=== PATIENT | female | born 1940 | race Caucasian/White ===

== ENCOUNTER 2017-10-25 12:46 | Emergency (ER) | payer MEDICARE, OTHER ==
--- NOTE | 2017-10-25 13:54 | ER Document Report ---
ED Fall - General Chief Complaint: Fall Stated Complaint: FALL/HEAD PAIN Time Seen by Provider: 10/25/17 13:50 Notes: 68-year-old female who tripped and fell and hit her head. She denies loss of consciousness before or after the fall. States she felt a little bit dizzy right after the fall but that is gone. Denies any extremity numbness tingling or weakness denies chest pain or shortness of breath. States she remembers the entire fall. Planes of also aching lower back pain also she describes as moderate worse with movement mainly she is concerned about her head. Describes the head as aching. Rates as moderate to severe hurts worse when he touches it. Denies any blurred vision. Denies any weakness. TRAVEL OUTSIDE OF THE [place] IN LAST 30 DAYS: No - Related data Allergies/Adverse Reactions: azithromycin Allergy (Verified 10/25/17 12:51) Sulfa (Sulfonamide Antibiotics) Allergy (Verified 10/25/17 12:51) Past Medical History - Social History Smoking Status: Never Smoker Frequency of alcohol use: None Drug Abuse: None Family History: Reviewed & Not Pertinent Patient has suicidal ideation: No Patient has homicidal ideation: No - Past Medical History Cardiac Medical History: Reports: Hx Hypertension Endocrine Medical History: Reports: Hx Diabetes Mellitus Type 2 Renal/ Medical History: Denies: Hx Peritoneal Dialysis Past Surgical History: Reports: Hx Orthopedic Surgery - Left knee Review of Systems - Review of Systems Constitutional: denies: Chills, Diaphoresis, Fever, Weakness Cardiovascular: denies: Chest pain Respiratory: denies: Short of breath Neurological/Psychological: Headaches. denies: Confusion, Weakness, Gait changes, Paralysis, Lost consciousness, Speech impairment, Numbness -: Yes All other systems reviewed and negative Physical Exam - Vital signs Vitals: Temp Pulse Resp BP Pulse Ox 97.8 F 62 14 152/51 H 98 10/25/17 12:56 10/25/17 12:56 10/25/17 12:56 10/25/17 12:56 10/25/17 12:56 - Notes Notes: GENERAL_APPEARANCE: well_nourished, alert, cooperative, no_acute_distress, no_ obvious_discomfort. VITALS: reviewed, see vital signs table. HEAD: 3-4 cm hematoma on the occipital parietal area of the head no open wounds just abrasion EYES: PERRL, EOMI, conjunctiva_clear. NOSE: no_nasal_discharge. MOUTH: (-)decreased moisture. THROAT: no_tonsilar_inflammation, no_airway_obstruction. no_lymphadenopathy NECK: supple, no_neck_tenderness, (-)thyromegaly. BACK: L4-5 midline_back_tenderness. CHEST_WALL: no_chest_tenderness. LUNGS: no_wheezing, no_rales, no_rhonchi, (-)accessory muscle use, good air exchange bilateral. HEART: normal_rate, normal_rhythm, normal_S1, normal_S2, (-)S3, (-)S4, no_ murmur, no_rub. ABDOMEN: normal_BS, soft, no_abd_tenderness, (-)guarding, (-)rebound, no_ organomegaly, no_abd_masses. EXTREMITIES: good pulses in all_extremities, no_swelling\tenderness in the extremities, no_edema. SKIN: warm, dry, good_color, no_rash. MENTAL_STATUS: speech_clear, oriented_X_3, normal_affect, responds_ appropriately to questions. NEURO: Neg Motor or Sensory Deficits on exam, CN 2-12 intact, DTR 2+ symmetric x 4, No cerbellar signs Course - Re-evaluation Re-evalutation: 10/25/17 13:54 She presents after mechanical trip and fall head neck injury. We will scan her head and neck to assess for skull fractures hemorrhage or cervical spine fractures. X-ray of the back also she is having some pain is no neurologic deficits noted. Patient is very pleasant. 10/25/17 14:50 The patient does have a small intracranial hemorrhage likely parenchymal bruising. We will transfer the patient to the back for further disposition. Will get some generalized blood work chest for any kind of coagulopathy. - Vital Signs Vital signs: Temp Pulse Resp BP Pulse Ox 97.8 F 62 14 152/51 H 98 10/25/17 12:56 10/25/17 12:56 10/25/17 12:56 10/25/17 12:56 10/25/17 12:56 - Diagnostic Test Radiology reviewed: Image reviewed Radiology results interpreted by me: 10/25/17 14:[address] 10/25/17 13:50 IMPRESSION: Considerable motion artifact. No fracture identified. Head CT 10/25/17 13:50 IMPRESSION: Small parenchymal or epidural hemorrhage left frontal lobe. EVIDENCE OF ACUTE STROKE: NO. Lumbar Spine X-Ray 10/25/17 13:51 IMPRESSION: SPONDYLOSIS WITHOUT BONE LESION OR FRACTURE. Discharge - Discharge Referrals: JAIRO ROBERTS MD [Primary Care Provider] - Follow up as needed
--- NOTE | 2017-10-25 14:46 | RADIOLOGY REPORT (SQ) ---
EXAM DESCRIPTION: CT HEAD WITHOUT COMPLETED DATE/TIME: 10/25/2017 2:31 pm REASON FOR STUDY: Fall - head, necj, back injury COMPARISON: None. TECHNIQUE: Axial images acquired through the brain without intravenous contrast. Images reviewed wi th bone, brain and subdural windows. Images stored on PACS. All CT scanners at this facility use dose modulation, iterative reconstruction, and/or weight based d osing when appropriate to reduce radiation dose to as low as reasonably achievable (ALARA). [facility]: Dose Right [facility]: CareDose [facility]: Dose Right [facility]: Teradose 4D [facility]: AltheaDx RADIATION DOSE: CT Rad equipment meets quality standard of care and radiation dose reduction techniq ues were employed. CTDIvol: 53.2 mGy. DLP: 1017 mGy-cm. mGy. LIMITATIONS: None. FINDINGS: VENTRICLES: Prominent. CEREBRUM: Small curvilinear focus of high attenuation in the left frontal lobe cortex measuring just over 1 cm. No extra-axial fluid collection. No deep parenchymal hemorrhage. CEREBELLUM: No masses. No hemorrhage. No alteration of density. No evidence for acute infarction. EXTRAAXIAL SPACES: Mild age-related involutional change. No fluid collections. No masses. ORBITS AND GLOBE: No intra- or extraconal masses. Normal contour of globe without masses. CALVARIUM: No fracture. PARANASAL SINUSES: No fluid or mucosal thickening. SOFT TISSUES: No mass or hematoma. OTHER: No other significant finding. IMPRESSION: Small parenchymal or epidural hemorrhage left frontal lobe. EVIDENCE OF ACUTE STROKE: NO. COMMENT: Pertinent findings on the imaging study reported as a CRITICAL RESULT to SHERLY STEPHENSON MD at14:39 on 10/25/2017. Category of Critical Result: Intracranial hemorrhage. TECHNICAL DOCUMENTATION: JOB ID: [id number] Quality ID # [id number]: Final reports with documentation of one or more dose reduction techniques (e.g., Au tomated exposure control, adjustment of the mA and/or kV according to patient size, use of iterative reconstruction technique) 2010 [employer]- All Rights Reserved Reading location - IP/workstation name: [email or web address]
--- NOTE | 2017-10-25 14:48 | RADIOLOGY REPORT (SQ) ---
EXAM DESCRIPTION: CT CERVICAL SPINE WITHOUT COMPLETED DATE/TIME: 10/25/2017 2:31 pm REASON FOR STUDY: Fall - head, necj, back injury COMPARISON: None. TECHNIQUE: Axial images acquired through the cervical spine without intravenous contrast. Images re viewed with lung, soft tissue and bone windows. Reconstructed coronal and sagittal MPR images review ed. Images stored on PACS. All CT scanners at this facility use dose modulation, iterative reconstruction, and/or weight based d osing when appropriate to reduce radiation dose to as low as reasonably achievable (ALARA). [facility]: Dose Right [facility]: CareDose [facility]: Dose Right [facility]: Teradose 4D [facility]: ESKY RADIATION DOSE: CT Rad equipment meets quality standard of care and radiation dose reduction techniq ues were employed. CTDIvol: 20.0 mGy. DLP: 319 mGy-cm. mGy. LIMITATIONS: Patient motion. FINDINGS: ALIGNMENT: Mild malalignment C4-5. MINERALIZATION: Normal. VERTEBRAL BODIES: No fractures or dislocation. Pannus formation C2. DISCS: Multilevel disc space narrowing with osteophytes. FACETS, LATERAL MASSES, POSTERIOR ELEMENTS: Anatomic variant incomplete posterior arch of C1. HARDWARE: None in the spine. VISUALIZED RIBS: No fractures. LUNG APICES AND SOFT TISSUES: No significant or acute findings. OTHER: No other significant finding. IMPRESSION: Considerable motion artifact. No fracture identified. TECHNICAL DOCUMENTATION: JOB ID: [id number] Quality ID # [id number]: Final reports with documentation of one or more dose reduction techniques (e.g., Au tomated exposure control, adjustment of the mA and/or kV according to patient size, use of iterative reconstruction technique) 2010 [employer]- All Rights Reserved Reading location - IP/workstation name: [email or web address]
--- NOTE | 2017-10-25 14:49 | RADIOLOGY REPORT (SQ) ---
EXAM DESCRIPTION: L SPINE WHOLE COMPLETED DATE/TIME: 10/25/2017 2:23 pm REASON FOR STUDY: Fall - head, necj, back injury COMPARISON: None. NUMBER OF VIEWS: Five views including obliques. TECHNIQUE: AP, lateral, oblique, and sacral radiographic images acquired of the lumbar spine. LIMITATIONS: None. FINDINGS: MINERALIZATION: Osteopenia. SEGMENTATION: Normal. No transitional anatomy. ALIGNMENT: Mild sigmoid scoliosis. VERTEBRAE: Maintained height. No fracture or worrisome bone lesion. DISCS: Multilevel disc space narrowing with osteophytes. POSTERIOR ELEMENTS: Pedicles and facets are intact. No pars defect or posterior arch defects. Facet arthropathy is present. HARDWARE: None in the spine. PARASPINAL SOFT TISSUES: Normal. PELVIS: Intact as visualized. No fractures or worrisome bone lesions. SI joints intact. OTHER: No other significant finding. IMPRESSION: SPONDYLOSIS WITHOUT BONE LESION OR FRACTURE. TECHNICAL DOCUMENTATION: JOB ID: [id number] [employer]- All Rights Reserved Reading location - IP/workstation name: [email or web address]
[2017-10-25 15:47] LABS: ABSOLUTE EOSINOPHILS # (AUTO) 0.2 10^3/uL (0.0-0.6); ABSOLUTE LYMPHOCYTES (AUTO) 1.5 10^3/uL (0.5-4.7); ABSOLUTE MONOCYTES (AUTO) 0.9 10^3/uL (0.1-1.4); ABSOLUTE NEUT (AUTO) 8.7 10^3/uL (1.7-8.2); BASOPHILS % (AUTO) 0.3 % (0-2); EOSINOPHILS % (AUTO) 1.5 % (0-6); HEMATOCRIT 41.1 % (36.0-47.0); HEMOGLOBIN 13.1 g/dL (12.0-15.5); LYMPHOCYTES % (AUTO) 13.3 % (13-45); MEAN CORPUSCULAR HEMOGLOBIN 26.7 pg (27.0-33.4); MEAN CORPUSCULAR VOLUME 84 fl (80-97); MONOCYTES % (AUTO) 8.2 % (3-13); PLATELET COUNT 343 10^3/uL (150-450); RED BLOOD COUNT 4.92 10^6/uL (3.72-5.28); RED CELL DISTRIBUTION WIDTH 15.7 % (11.5-14.0); SEGMENTED NEUTROPHILS % (AUTO) 76.7 % (42-78); TOTAL CELLS COUNTED % (AUTO) 100 %; WHITE BLOOD COUNT 11.4 10^3/uL (4.0-10.5)
[2017-10-25 15:50] LABS: INTERNATIONAL RATION (INR) 0.95; PROTHROMBIN TIME 13.2 SEC (11.4-15.4)
--- NOTE | 2017-10-25 15:51 | ER Document Report ---
ED General - General Chief Complaint: Fall Stated Complaint: FALL/HEAD PAIN Time Seen by Provider: 10/25/17 13:50 Mode of Arrival: Medic Information source: Patient, Relative Notes: 76-year-old female with hypertension, hyperlipidemia, type 2 diabetes presents via EMS after a trip and fall from standing approximately 4 hours prior to arrival. Patient states that she had a trip and fall causing her to fall backwards striking the back of her head on a tile floor. Patient denies being on any blood thinning medications, loss of consciousness, preceding dizziness, chest pain or shortness of breath. She is currently complaining of a headache, nausea and dizziness, neck and back pain. TRAVEL OUTSIDE OF THE [place] IN LAST 30 DAYS: No - HPI Onset: Just prior to arrival Onset/Duration: Sudden Quality of pain: Achy, Throbbing Severity: Moderate Associated symptoms: Headache, Nausea. denies: Chest pain, Shortness of breath Exacerbated by: Denies Relieved by: Denies Similar symptoms previously: No Recently seen / treated by doctor: No - Related Data Allergies/Adverse Reactions: azithromycin Allergy (Verified 10/25/17 12:51) Sulfa (Sulfonamide Antibiotics) Allergy (Verified 10/25/17 12:51) Past Medical History - General Information source: Patient - Social History Smoking Status: Never Smoker Frequency of alcohol use: None Drug Abuse: None Lives with: Family Family History: Reviewed & Not Pertinent Patient has suicidal ideation: No Patient has homicidal ideation: No - Past Medical History Cardiac Medical History: Reports: Hx Hypertension Endocrine Medical History: Reports: Hx Diabetes Mellitus Type 2 Renal/ Medical History: Denies: Hx Peritoneal Dialysis Past Surgical History: Reports: Hx Orthopedic Surgery - Left knee Review of Systems - Review of Systems Notes: REVIEW OF SYSTEMS: CONSTITUTIONAL : Denies fever, chills, or sweats. Denies recent illness. Denies weight loss, recent hospitalizations. EENT: Denies visual changes, eye pain. Denies nasal or sinus congestion or discharge. Denies sore throat, oral lesions, difficulty swallowing. CARDIOVASCULAR: Denies chest pain. Denies palpitations. Denies lower extremity edema. RESPIRATORY: Denies cough, cold, or chest congestion. Denies shortness of breath, wheezing. GASTROINTESTINAL: Denies abdominal pain or distention. Denies nausea, vomiting , or diarrhea. Denies blood in vomitus, stools, or per rectum. Denies black, tarry stools. Denies constipation. GENITOURINARY: Denies difficulty urinating, painful urination, frequency, blood in urine, or vaginal discharge. MUSCULOSKELETAL: Denies joint pain or swelling. SKIN: Denies rash, lesions or sores. HEMATOLOGIC : Denies easy bruising or bleeding. LYMPHATIC: Denies swollen glands. NEUROLOGICAL: Denies confusion or altered mental status. Denies passing out or loss of consciousness. Denies weakness or paralysis. Denies problems difficulty with ambulation, slurred speech. Denies sensory loss, numbness, or tingling. Denies seizures. PSYCHIATRIC: Denies anxiety or stress. Denies depression, suicidal ideation, or homicidal ideation. Denies visual or auditory hallucinations. Physical Exam - Vital signs Vitals: Temp Pulse Resp BP Pulse Ox 97.8 F 62 14 152/51 H 98 10/25/17 12:56 10/25/17 12:56 10/25/17 12:56 10/25/17 12:56 10/25/17 12:56 - Notes Notes: PHYSICAL EXAMINATION: GENERAL: Well-appearing, well-nourished and in no acute distress. GCS 15 HEAD: Occipital cephalohematoma EYES: Pupils equal round and reactive to light, extraocular movements intact, sclera anicteric, conjunctiva are normal. ENT: Nares patent, oropharynx clear without exudates. Moist mucous membranes. No hemanotympanum . No blood in nares. No dental fracture or malocclusion. Midface stable. NECK: Normal range of motion, supple without lymphadenopathy. Trachea midline. Midline tenderness without step-off or deformity LUNGS: Breath sounds clear to auscultation bilaterally and equal. No wheezes rales or rhonchi. HEART: Regular rate and rhythm without murmurs. Pulses intact all throughout. ABDOMEN: Soft, nontender, nondistended abdomen. No guarding, no rebound. No masses appreciated. Musculoskeletal: Normal range of motion, no pitting or edema. No cyanosis. Hip non tender, pelvis stable. Moving all 4 extremities without difficulty. NEUROLOGICAL: Cranial nerves grossly intact. Normal speech, Normal sensory, motor, and reflex exams. PSYCH: Normal mood, normal affect. SKIN: Warm, No active bleeding Course - Re-evaluation Re-evalutation: 10/25/17 15:53 Laboratory 10/25/17 15:30 WBC 11.4 H RBC 4.92 Hgb 13.1 Hct 41.1 MCV 84 MCH 26.7 L MCHC 32.0 RDW 15.7 H Plt Count 343 Seg Neutrophils % 76.7 Lymphocytes % 13.3 Monocytes % 8.2 Eosinophils % 1.5 Basophils % 0.3 Absolute Neutrophils 8.7 H Absolute Lymphocytes 1.5 Absolute Monocytes 0.9 Absolute Eosinophils 0.2 Absolute Basophils 0.0 Laboratory 10/25/17 10/25/17 10/25/17 15:30 15:30 15:30 WBC 11.4 H RBC 4.92 Hgb 13.1 Hct 41.1 MCV 84 MCH 26.7 L MCHC 32.0 RDW 15.7 H Plt Count 343 Seg Neutrophils % 76.7 Lymphocytes % 13.3 Monocytes % 8.2 Eosinophils % 1.5 Basophils % 0.3 Absolute Neutrophils 8.7 H Absolute Lymphocytes 1.5 Absolute Monocytes 0.9 Absolute Eosinophils 0.2 Absolute Basophils 0.0 PT 13.2 INR 0.95 Sodium 143.8 Potassium 4.3 Chloride 103 Carbon Dioxide 27 Anion Gap 14 BUN 20 Creatinine 0.38 L Est GFR ( Amer) > 60 Est GFR (Non-Af Amer) > 60 Glucose 83 Calcium 9.[address] 10/25/17 13:50 IMPRESSION: Considerable motion artifact. No fracture identified. Head CT 10/25/17 13:50 IMPRESSION: Small parenchymal or epidural hemorrhage left frontal lobe. EVIDENCE OF ACUTE STROKE: NO. Lumbar Spine X-Ray 10/25/17 13:51 IMPRESSION: SPONDYLOSIS WITHOUT BONE LESION OR FRACTURE. [facility] contacted for transfer for possible epidural hemorrhage 10/25/17 17:21 10/25/17 17:22 76-year-old female with hypertension, hyperlipidemia, type 2 diabetes presents via EMS after a trip and fall from standing approximately 4 hours prior to arrival. Patient states that she had a trip and fall causing her to strike the back of her head on a tile floor. Patient denies being on any blood thinning medications, loss of consciousness, preceding dizziness, chest pain or shortness of breath. She is currently complaining of a headache, nausea and dizziness, neck and back pain. Vital signs reviewed upon arrival. Patient is mildly hypertensive but afebrile and not hypoxic. GCS 15. Patient without any neuro deficits. Exam significant for a small contusion to the back of her head. She does have some midline cervical tenderness but after Tylenol reports improvement. CT of the cervical spine was obtained and showed no fracture. Head CT shows small parenchymal or epidural hemorrhage of the left frontal lobe. X-rays of the lumbar spine are without fracture. Patient reevaluated multiple times and has remained stable. Family is at the bedside and is aware that the patient will be transferred to [facility]. Patient will be transferred to the emergency department as a trauma. Patient was accepted by Dr. Geni Carlos. 10/25/17 17:22 - Vital Signs Vital signs: Temp Pulse Resp BP Pulse Ox 97.8 F 62 24 H 174/65 H 97 10/25/17 12:56 10/25/17 12:56 10/25/17 16:01 10/25/17 16:01 10/25/17 16:01 - Laboratory Result Diagrams: 10/25/17 15:30 10/25/17 15:30 Laboratory results interpreted by me: 10/25/17 10/25/17 15:30 15:30 WBC 11.4 H MCH 26.7 L RDW 15.7 H Absolute Neutrophils 8.7 H Creatinine 0.38 L - Diagnostic Test Radiology reviewed: Image reviewed, Reports reviewed Discharge - Discharge Clinical Impression: Parenchymal hemorrhage Head injury Qualifiers: Encounter type: initial encounter Qualified Code(s): S09.90XA - Unspecified injury of head, initial encounter Epidural hemorrhage Qualifiers: Encounter type: initial encounter Loss of consciousness presence/duration: without LOC Qualified Code(s): S06.4X0A - Epidural hemorrhage without loss of consciousness, initial encounter Headache Qualifiers: Headache type: unspecified Headache chronicity pattern: acute headache Intractability: not intractable Qualified Code(s): R51 - Headache Cervical strain Qualifiers: Encounter type: initial encounter Qualified Code(s): S16.1XXA - Strain of muscle, fascia and tendon at neck level, initial encounter Fall Qualifiers: Encounter type: initial encounter Qualified Code(s): W19.XXXA - Unspecified fall, initial encounter Condition: Good Disposition: [facility] Forms: Elevated Blood Pressure Referrals: JAIRO ROBERTS MD [Primary Care Provider] - Follow up as needed
[2017-10-25 16:03] LABS: ANION GAP 14 (5-19); BLOOD UREA NITROGEN 20 mg/dL (7-20); CALCIUM 9.9 mg/dL (8.4-10.2); CARBON DIOXIDE 27 mmol/L (22-30); CHLORIDE 103 mmol/L (98-107); GLUCOSE 83 mg/dL (75-110); POTASSIUM 4.3 mmol/L (3.6-5.0); SODIUM 143.8 mmol/L (137-145)
[2017-10-25] MEDS ORDERED: NORMAL SALINE 1000 ML 1,000 ML IV ONE (16:57)
[2017-10-25] MEDS ORDERED: ACETAMINOPHEN 325 MG TABLET PO ONE (17:25)
[2017-10-25 19:50] VITALS: BP 154/63
== END 2017-10-25 19:57 | disposition short-term general hospital (02) ==
LOC: ER 12:46
DX: S06.4X0A Epidural hemorrhage without loss of consciousness, initial encounter (principal); S16.1XXA Strain of muscle, fascia and tendon at neck level, initial encounter; R51 Headache; M54.2 Cervicalgia; W19.XXXA Unspecified fall, initial encounter; R11.0 Nausea; R42 Dizziness and giddiness; M47.9 Spondylosis, unspecified; M54.9 Dorsalgia, unspecified; I10 Essential (primary) hypertension; E11.9 Type 2 diabetes mellitus without complications; Z88.1 Allergy status to other antibiotic agents
CPT/HCPCS: 99285; 96360; 96361; 36415; 85025; 85610; 80048; 72110; 70450; 72125; A9270; J7030